=== PATIENT | female | born 1935 | race Caucasian/White ===

== ENCOUNTER 2019-10-17 06:56 | Observation (INO) | payer MEDICARE ==
[2019-10-17 07:40] LABS: #Monocytes 0.3 thou/uL (0.11-0.59); #Neutrophils 9.6 thou/uL (1.40-6.50); %Basophils 0.2 % (0.0-1.0); %Eosinophils 0.2 % (0.0-10.0); %Lymphocytes 9.1 % (21.0-51.0); %Monocytes 2.8 % (0.0-10.0); %Neutrophils 87.8 % (42.0-75.0); Hemoglobin 13.3 g/dL (12.0-16.0); Mean Corpuscular HGB CONC 33.8 g/dL (32.0-36.0); Mean Corpuscular Hemoglobin 30.7 pg (27.0-31.0); Mean Corpuscular Volume 90.8 fL (78.0-98.0); Mean Platelet Volume 8.3 fL (7.4-10.4); Platelet Count 314 thou/uL (130-400); Red Blood Cell (RBC) Count 4.34 mill/uL (4.20-5.40); White Blood Cell (WBC) Count 10.9 thou/uL (4.8-10.8)
[2019-10-17 07:40] LABS: Bacteria/HPF None Seen HPF (None Seen); Bilirubin Negative (Negative); Blood, Urine Trace (Negative); Clarity Clear (Clear); Glucose, Urine (Dipstick) Normal (Negative); Leukocyte 25 Leu/uL (Negative); Nitrite Negative (Negative); Protein, Urine (Dipstick) 10 mg/dL (Neg-Trace); RBC/HPF 21-50 HPF (0-3); Squamous Epithelial 0-3 HPF (0-3); Urobilinogen Normal mg/dL (Less than 2)
[2019-10-17 08:44] LABS: Albumin 4.3 g/dL (3.4-4.8)
[2019-10-17 08:45] LABS: Chloride 105 mmol/L (98-107); Potassium 3.9 mmol/L (3.5-5.1); Sodium 140 mmol/L (136-145)
[2019-10-17 08:46] LABS: Calcium 9.6 mg/dL (7.8-10.44)
[2019-10-17 08:47] LABS: Globulin 2.8 g/dL (2.4-3.5); Glucose 119 mg/dL (83-110); Protein, Total 7.1 g/dL (6.0-8.3)
[2019-10-17 08:48] LABS: Anion Gap 16 mmol/L (10-20); Bilirubin, Total 0.5 mg/dL (0.2-1.2); Carbon Dioxide 23 mmol/L (23-31)
[2019-10-17 08:49] LABS: Alkaline Phosphatase 79 U/L (40-110)
[2019-10-17 08:50] LABS: Calc. Creatinine Clearance 0 mL/min (70-130); Estimated GFR-MDRD 34
[2019-10-17 08:51] LABS: BUN (Urea Nitrogen) 22 mg/dL (9.8-20.1)
[2019-10-17 08:52] LABS: ALT (SGPT) 12 U/L (8-55); AST (SGOT) 24 U/L (5-34)
[2019-10-17 08:53] LABS: Lipase 15 U/L (8-78)
[2019-10-17] MEDS ORDERED: Ondansetron PF 4 MG/2 ML Vial ONE (09:18)
[2019-10-17] MEDS ORDERED: Morphine 4 MG/ML VIAL ONE (09:27)
--- NOTE | 2019-10-17 10:35 | CT ---
ABDOMEN AND PELVIC CT SCAN WITH IV CONTRAST: Date: 10/17/2019 HISTORY: Abdominal pain, primarily right-sided. FINDINGS: Minimal bilateral lower lobe linear parenchymal changes with some pleural thickening having more of a chronic appearance. The liver is unremarkable. Approximately 1.1 cm diameter gallstone within the gallbladder without evidence for distention or abn ormal wall thickening or pericholecystic fluid or other evidence for acute cholecystitis. The pancrea s appears unremarkable. Spleen and adrenal glands are unremarkable. There is moderate dilatation of t he right upper renal collecting system secondary to a large 0.9 x 1.3 cm diameter obstructing calculu s at the ureteropelvic junction. Several smaller nonobstructing right renal calculi. Multiple left renal parapelvic cysts, but no evidence for calculus or acute obstruction. Atherosclerosis of the aorta with some mild lumen diameter narrowing of the distal abdominal aorta. M ultilevel lumbar spine disc osteophytosis and some variable degree of stenosis. Colonic diverticulosi s without acute diverticulitis. Normal appearing appendix. Urinary bladder appears unremarkable. Uter us and adnexal regions are unremarkable as visualized. IMPRESSION: 1. Large obstructing right-sided calculus at the ureteropelvic junction. 2. Normal appearing appendix. 3. Cholelithiasis without evidence for acute cholecystitis. 4. Other findings as above. POS: RRE
--- NOTE | 2019-10-17 10:46 | RAD ---
PORTABLE CHEST 1 VIEW: Date: 10/17/2019 Time: 1012 hours HISTORY: Right lower quadrant pain, nausea and vomiting. FINDINGS/IMPRESSION: The heart size is borderline. The aorta is tortuous. There is evidence of old granulomatous disease. No lobar consolidation, pneumothoraces, jose pulmonary edema, or large effusions are identified. POS: MZA
[2019-10-17] MEDS ORDERED: Iopamidol-370 76% 500 ML 1 ML ONE (11:35)
[2019-10-17] MEDS ORDERED: Acetaminophen 325 MG TAB PO PRN (12:00)
[2019-10-17] MEDS ORDERED: Ondansetron ODT 4 MG TAB SL PRN (12:00)
[2019-10-17] MEDS ORDERED: Ondansetron PF 4 MG/2 ML Vial IVP PRN (12:00)
[2019-10-17] MEDS ORDERED: Morphine 4 MG/ML VIAL SLOW IVP PRN (15:19)
[2019-10-17 15:21] VITALS: BMI 25.7
[2019-10-17] MEDS ORDERED: HYDROcodone/Acetaminophen 5/325 mg Tablet PO PRN ×2 (15:25)
[2019-10-17] MEDS ORDERED: Zolpidem Tartrate 5 MG TAB PO PRN (15:25)
[2019-10-17] MEDS ORDERED: diphenhydrAMINE 50 MG/ML VIAL IVP PRN (15:25)
[2019-10-17] MEDS ORDERED: Mag-Al 1200 mg/1200 mg/30 ML UDCUP PO PRN (15:25)
[2019-10-17] MEDS ORDERED: Acetaminophen 500 MG TAB PO PRN (15:25)
[2019-10-17] MEDS ORDERED: traMADol HCl 50 MG TAB PO PRN (15:29)
--- NOTE | 2019-10-17 15:55 | PDOC.HHP ---
Hospitalist HPI - History of Present Illness abdominal pain History of Present Illness: THis is an 84 year old female patient with past medical history of hypertension , hyperlipidemia, hypothyroidism who presented to the emergency room with abdominal pain. The patient states that her abdominal pain started in her right side radiating to her back at 2:00 am. It was sharp, intermittent and associated with dry heaving. She did not take her medication this morning because she was unsure what was happening. She denies fevers or chills. She denies dysuria but reported some urinary frequency and urge incontinence. She denies diarrhea or recent travel history. She reports intermittent constipation. ED Course: Upon presentation to the ER, the patient had normal vital signs. Labs showed leukocytosis of 10.9 and creatinine of 1.47. CT abdomen showed large obstructing right sided calculus at the UPJ and cholelithiasis. UA showed 7-10 WBC and 21-50 RBC. The patient was given hydrocodone, 1L of IV fluid and morphine and admitted for lithotripsy. SHe did become hypoxic in ER after morphine administration so was admitted for observation. Hospitalist ROS - Review of Systems Constitutional: denies: fever, chills Eyes: denies: vision change Respiratory: denies: cough, dry, shortness of breath Cardiovascular: denies: chest pain, palpitations, orthopnea Gastrointestinal: reports: nausea, abdominal pain, constipation. denies: vomiting Genitourinary: reports: dysuria, frequency Musculoskeletal: reports: neck pain, shoulder pain Skin: reports: rash, lesions Hospitalist History - Past Medical History Cardiac: reports: HTN, Hyperlipidemia Endocrine: reports: Hypothyroidism - Past Surgical History Past Surgical History: reports: Cataract Removal - Family History Other Family History: No family history of kidney stones - Social History Smoking Status: Former smoker Alcohol: reports: None Drugs: reports: none Occupation: retired - Exam General Appearance: NAD, awake alert General - other findings: obese Eye: PERRL, anicteric sclera ENT: normocephalic atraumatic, no oropharyngeal lesions Neck: supple, symmetric, no JVD Heart: RRR, no murmur, no gallops, no rubs Respiratory: CTAB, no wheezes, no rales, no ronchi, no tachypnea Gastrointestinal: soft, non-tender Gastrointestinal - other findings: RLQ tenderness and CVA tenderness Extremities: no cyanosis, no clubbing, no edema Skin: normal turgor, no lesions, no rashes Hospitalist Results - Labs Result Diagrams: 10/17/19 07:22 10/17/19 08:20 Lab results: WBC 10.9 thou/uL (4.8-10.8) H 10/17/19 07:22 Hgb 13.3 g/dL (12.0-16.0) 10/17/19 07:22 Hct 39.4 % (36.0-47.0) 10/17/19 07:22 MCV 90.8 fL (78.0-98.0) 10/17/19 07:22 Plt Count 314 thou/uL (130-400) 10/17/19 07:22 Neutrophils % 87.8 % (42.0-75.0) H 10/17/19 07:22 Sodium 140 mmol/L (136-145) 10/17/19 08:20 Potassium 3.9 mmol/L (3.5-5.1) 10/17/19 08:20 Chloride 105 mmol/L (98-107) 10/17/19 08:20 Carbon Dioxide 23 mmol/L (23-31) 10/17/19 08:20 BUN 22 mg/dL (9.8-20.1) H 10/17/19 08:20 Creatinine 1.47 mg/dL (0.6-1.1) H 10/17/19 08:20 Glucose 119 mg/dL (83-110) H 10/17/19 08:20 Calcium 9.6 mg/dL (7.8-10.44) 10/17/19 08:20 Total Bilirubin 0.5 mg/dL (0.2-1.2) 10/17/19 08:20 AST 24 U/L (5-34) 10/17/19 08:20 ALT 12 U/L (8-55) 10/17/19 08:20 Alkaline Phosphatase 79 U/L (40-110) 10/17/19 08:20 Serum Total Protein 7.1 g/dL (6.0-8.3) 10/17/19 08:20 Albumin 4.3 g/dL (3.4-4.8) 10/17/19 08:20 Lipase 15 U/L (8-78) 10/17/19 08:20 Urine Ketones Trace mg/dL (Negative) A 10/17/19 07:20 Urine Blood Trace (Negative) A 10/17/19 07:20 Urine Nitrite Negative (Negative) 10/17/19 07:20 Ur Leukocyte Esterase 25 Ruel/uL (Negative) 10/17/19 07:20 Urine RBC 21-50 HPF (0-3) A 10/17/19 07:20 Urine WBC 7-10 HPF (0-3) A 10/17/19 07:20 Ur Squamous Epith Cells 0-3 HPF (0-3) 10/17/19 07:20 Urine Bacteria None Seen HPF (None Seen) 10/17/19 07:20 Hospitalist H&P A/P - Plan Plan: Chest X ray: normal CT abdomen: large obstructing right sided calculus at UPJ with moderate dilation of right upper renal collecting system 0.9 x 1.3 cm. Several smaller nonobstructing renal calculi. Cholelithiasis This is an 84 year old female with hyperlipidemia, hypothyroidism who presented with abdominal pain secondary to kidney stone #Obstructive uropathy secondary to kidney stone #Acute Kidney Injury - start IV fluids 100/hour, creatinine currently up to 1.47 - UA showed only 7-10 WBC but due to frequency and urgency send urine culture. She has been started on IV ceftriaxone - morphine prn for pain - urology consulted, plan for possible lithotripsy tomorrow Cholelithiasis - no RUQ tenderness on exam, outpatient follow up Left renal cysts - outpatient follow up Hypothyroidism - continue levothyroxine Hyperlipidemia - continue fenofibrate Hypertension - continue amlodipine DVT prophylaxis: SCDS Code status: full code for procedure than afterwards DNR/DNi
[2019-10-17] MEDS: Sodium Chloride 0.9% 1,000 ML IV SCH (15:59)
[2019-10-17] MEDS ORDERED: cefTRIAXone\\ROCEPHIN 1 GM in Sodium Chloride 0.9% 100 ML IVPB SCH (16:00)
[2019-10-17 16:06] LABS: PTT 25.4 SEC (22.9-36.1); Prothrombin Time 12.7 SEC (12.0-14.7)
--- NOTE | 2019-10-17 16:53 | CON ---
DATE OF CONSULTATION: 10/17/2019 REASON FOR CONSULT: Right upper quadrant abdominal discomfort, associated nausea, hypoxia after pain medications. HISTORY OF PRESENT ILLNESS: Ms. Red is a pleasant 84-year-old female who presented to the emergency room due to worsening of her right lower quadrant abdominal discomfort. As she was concerned regarding possible gallstones or appendicitis, she presented to [facility] Emergency Room. Her primary care physician is Dr. Lewis. The patient does have history of hypertension, hypercholesteremia with minimal comorbidities. She states that this is the first time she has ever presented to an ER or hospital setting. She has had associated nausea with right lower quadrant abdominal discomfort, she rates this 6 to 7/10 on the pain scale with progressive worsening. The pain is intermittent, resolves on its own. She denies fever, gross hematuria, prior history of kidney stones. She lives in a private residence with her son. She is a . She was provided pain medication by the emergency room, morphine. Although this resolved her discomfort, this resulted in hypoxia, resulting in her requiring 2 L of O2. Currently, she is saturating well, and states that she has no significant discomfort after the morphine. PAST MEDICAL HISTORY: Hypertension, hypercholesteremia, chronic shoulder pain, hypothyroidism. FAMILY HISTORY: Unknown as they are . SOCIAL HISTORY: Remote history of tobacco abuse, quit years ago. Minimal tobacco year, about 5 or 10 years per the patient. HOME MEDICATIONS: Include: 1. Levothyroxine. 2. Fenofibrate. 3. Amlodipine. 4. Benazepril. ALLERGIES: NO KNOWN DRUG ALLERGIES. PHYSICAL EXAMINATION: VITAL SIGNS: Stable. She is 98, 180/91, 22, 98. She is 97% on 2 L. GENERAL: The patient appears to be in no acute distress, conversational, provides her own subjective history. She is alert and oriented x3. HEENT: Grossly unremarkable. HEART: Regular rate. LUNGS: Clear. ABDOMEN: Soft, nontender, nondistended. There is no flank tenderness or CVA tenderness of concern at this time. No suprapubic tenderness. : Demonstrates atrophic vaginitis. EXTREMITIES: No cyanosis, clubbing, or edema. NEUROLOGICAL: No gross focal deficits per se. SKIN: No obvious rashes. Normal turgor. MUSCULOSKELETAL: No gross asymmetry or abnormality grossly appreciated. LABORATORY DATA: Pertinent labs and imaging which I reviewed myself. White count of 10, hemoglobin 13, platelet 214, 87 segs. Chemistry profile: Sodium 140, potassium 3.9, BUN 22, creatinine 1.4. There is no prior BMP for comparison. LFTs are grossly unremarkable. UA demonstrates yellow, clear, trace ketones, trace blood, negative nitrites, 25 leukocytes, 20 to 50 rbc's, 7 to 10 wbc's, 0 to 3 epithelials, bacteria none. Culture has been sent by the emergency room. DIAGNOSTIC STUDIES: Pertinent imagin. Abdomen and pelvis CT with contrast, which I reviewed myself: Large right proximal ureteral calculi, measuring 1.3 cm x 9 mm x 8 mm. Per my review, the stone is at the level of L3, Hounsfield unit greater than 1000. There is also right lower pole 4-mm nonobstructing renal calculus. Left kidney demonstrates multiple parapelvic cysts without evidence of left hydronephrosis. Cholelithiasis without evidence of acute cholecystitis. Normal appendix. Atherosclerosis of the aorta with some mild lumen diameter narrowing of the distal abdominal aorta. 2. Chest x-ray is grossly unremarkable. 3. EKG is normal sinus rhythm with prolonged QT. IMPRESSION AND PLAN: 1. Ms. Red is a pleasant 84-year-old female with history of right lower quadrant flank pain due to large right proximal ureteral calculus, dimensions and location as above. 2. Incidental gallstones without evidence of cholecystitis. 3. Hypoxic episode after morphine for pain control. The patient is currently admitted under medical service. She appears to be resting comfortably with stable vital signs. I will start empiric Rocephin. I informed the patient that due to large stone burden, treatment is likely required as she presents with a large 1.3-cm proximal ureteral calculus. Given stone size, it is unlikely that she would pass this spontaneously. She would like this treated. Await UCX She has consented for cysto, right retrograde stent, possible ureteroscopy, laser lithotripsy pending ucx. She may need staged intervention given large stone burden, location, density, discussed with her in detail. Risks and complications including, but not limited to, bleeding, pain, infection, injury to adjacent organs, ureteral or renal or bladder injury, sepsis have been reviewed with her in detail. She may have heart healthy diet today, n.p.o. after midnight as we planned to proceed with cysto stent tomorrow morning. Job ID: [id number] MTDD
[2019-10-17] MEDS ORDERED: hydrALAZINE 20 MG/ML VIAL SLOW IVP PRN (20:04)
[2019-10-17] MEDS: Docusate 100 MG CAP PO SCH (20:36)
[2019-10-17] MEDS ORDERED: Famotidine/PF 20 mg/2ml Vial SLOW IVP SCH (21:00)
[2019-10-18] MEDS ORDERED: Ondansetron PF 4 MG/2 ML Vial IVP PRN (02:08)
[2019-10-18] MEDS ORDERED: Ondansetron ODT 4 MG TAB PO PRN (02:08)
[2019-10-18] MEDS: Sodium Chloride 0.9% 1,000 ML IV SCH ×2 (02:32→13:19)
[2019-10-18] MEDS ORDERED: Levothyroxine Sodium 50 MCG TAB PO SCH (06:00)
[2019-10-18 06:12] LABS: #Eosinphils 0.1 thou/uL (0.0-0.7); #Lymphocytes 1.6 thou/uL (1.20-3.40); #Monocytes 0.6 thou/uL (0.11-0.59); #Neutrophils 6.4 thou/uL (1.40-6.50); %Basophils 0.5 % (0.0-1.0); %Eosinophils 1.1 % (0.0-10.0); %Lymphocytes 18.6 % (21.0-51.0); %Monocytes 7.1 % (0.0-10.0); %Neutrophils 72.6 % (42.0-75.0); Hemoglobin 10.7 g/dL (12.0-16.0); Mean Corpuscular HGB CONC 33.4 g/dL (32.0-36.0); Mean Corpuscular Hemoglobin 30.7 pg (27.0-31.0); Mean Platelet Volume 8.2 fL (7.4-10.4); Platelet Count 250 thou/uL (130-400); RBC Distribution Width 11.8 % (11.5-14.5); Red Blood Cell (RBC) Count 3.48 mill/uL (4.20-5.40); White Blood Cell (WBC) Count 8.8 thou/uL (4.8-10.8)
[2019-10-18 06:19] LABS: Hemoglobin A1c 5.4 % (4.0-6.0)
[2019-10-18 06:29] LABS: Anion Gap 11 mmol/L (10-20); BUN (Urea Nitrogen) 17 mg/dL (9.8-20.1); Calc. Creatinine Clearance 40 mL/min (70-130); Calcium 8.5 mg/dL (7.8-10.44); Carbon Dioxide 25 mmol/L (23-31); Chloride 109 mmol/L (98-107); Estimated GFR-MDRD 46; Glucose 105 mg/dL (83-110); Potassium 4.1 mmol/L (3.5-5.1); Sodium 141 mmol/L (136-145)
--- NOTE | 2019-10-18 07:51 | PRG ---
DATE OF SERVICE: 10/18/2019 SUBJECTIVE: Patient is feeling better today. OBJECTIVE: VITAL SIGNS: Stable. She is afebrile, 92%. ABDOMEN: Soft, nontender, nondistended. No CVA tenderness. PERTINENT LABORATORY DATA: White count decreased from 10 to 8, hemoglobin 12, and platelet 250. Creatinine on admission 1.4, this morning it is 1.1. Urine culture is pending. IMPRESSION AND PLAN: Ms. Red is an 84-year-old female with large right UPJ proximal ureteral calculi. She is n.p.o. for cysto, stent today. As urine culture is pending, I informed her that we will schedule ureteroscopy, laser lithotripsy in a week or two when culture has finalized. She verbalizes understanding. Anticipate she will be discharged after her ureteral stent. Job ID: [id number]
[2019-10-18] MEDS ORDERED: Famotidine/PF 20 mg/2ml Vial SLOW IVP SCH (09:00)
[2019-10-18] MEDS ORDERED: Amlodipine 10 MG TAB PO SCH (09:00)
[2019-10-18] MEDS ORDERED: Iothalamate Meglumine 60% 30 ML VIAL FS ONE (10:13)
[2019-10-18] MEDS ORDERED: Fentanyl 100 MCG/2 ML VIAL ONE (10:18)
[2019-10-18] MEDS ORDERED: Famotidine/PF 20 mg/2ml Vial ONE (10:18)
[2019-10-18] MEDS ORDERED: PROPOFOL 60 ML ONE (10:18)
[2019-10-18] MEDS: Docusate 100 MG CAP PO SCH (10:22)
[2019-10-18] MEDS ORDERED: cefTRIAXone\\ROCEPHIN 1 GM VIAL ONE (10:44)
[2019-10-18] MEDS ORDERED: Sodium Chloride 0.9% 100 ML ONE (10:45)
[2019-10-18] MEDS ORDERED: Phenazopyridine HCl 97.5 MG TABLET PO PRN (11:04)
[2019-10-18] MEDS ORDERED: Ondansetron HCl/PF 4 MG/2 ML Vial IVP PRN (11:07)
--- NOTE | 2019-10-18 11:14 | RAD ---
EXAM: XR IVP Retrograde PROVIDED CLINICAL HISTORY: Right ureteral stent placement. COMPARISON: CT abdomen on 10/17/2019 FINDINGS/IMPRESSION: Varitypist image demonstrates a calcification overlying the expected location of the right renal pelvis sh own to represent a calculus in the renal pelvis on prior CT exam. No definite additional suspicious calcifications are seen on this exam. Degenerative changes are seen in the spine with mild left conve x curvature of thoracolumbar spine. Retrograde urogram demonstrates mild right hydronephrosis with final image demonstrating a right ureteral stent in place. Correlation with intraoperative findings i s recommended.
--- NOTE | 2019-10-18 11:39 | OP ---
DATE OF PROCEDURE: 10/18/2019 PREOPERATIVE DIAGNOSIS: An 84-year-old female presented with right flank pain due to a large right proximal ureteropelvic junction stone measuring 1.3 cm. POSTOPERATIVE DIAGNOSIS: An 84-year-old female presented with right flank pain due to a large right proximal ureteropelvic junction stone measuring 1.3 cm. PROCEDURES PERFORMED: Cystoscopy, right retrograde pyelogram, 6 x 22 double-J ureteral stent placement with distal tail. ANESTHESIA: TIVA. COMPLICATIONS: None apparent. DISPOSITION: To recovery room in stable condition. INDICATIONS OF THE PROCEDURE AND HISTORY: Ms. Red is an 84-year-old female with minimal comorbidities, presented to the emergency room due to significant right flank pain. She was found to have a large right UPJ stone measuring 1.3 cm. Given large stone burden, she presents for stent. It is unlikely that she would pass a right 1.3 cm stone, moreover, pain medication provided in the emergency room has resulted in desaturation. Therefore, she is admitted to the medical service and has been doing well. As her preliminary urine culture demonstrates low count gram-negative luna, she is advised regarding ureteral stent, ureteroscopy, laser lithotripsy after culture finalized and infection resolved. Risks and complications of the procedure were reviewed with her in detail including, but not limited to: Bleeding, pain, infection, injury to adjacent organs, urosepsis, ureteral, renal , kidney injury. All questions answered to her satisfaction and she desired to proceed. DESCRIPTION OF PROCEDURE: After an informed consent was signed, the patient was taken to the operating room, placed in a dorsal lithotomy position with the genital area prepped and draped in the usual surgical sterile fashion. She was provided broad-spectrum antibiotics preoperatively, bilateral MANJULA hose SCDs were placed. A 22-Armenian cystoscope was utilized for cystoscopy, which demonstrated mildly deviated trigone secondary to a cystocele. The UOs were in normal orthotopic position. No bladder calculi or bladder tumors were seen. An open-ended catheter was utilized to intubate the right UO and there was some resistance at the level of the UPJ stone. Therefore, a gentle retrograde pyelogram was performed demonstrating a large UPJ stone, with hydronephrosis. A 0.035 Sensor wire was able to be placed into the right upper pole with ease and a 6 x 22 double-J ureteral stent was placed. Distal tail was left in situ and she tolerated the procedure well. She will be admitted back to the floor, she will most likely be discharged this afternoon with broad-spectrum antibiotic therapy such as ciprofloxacin x 5 days. vesicare, azo prn , trmadol prn has close followup with me tomorrow to preop for ureteroscopy, laser lithotripsy. Job ID: [id number] MTDD
[2019-10-18] MEDS ORDERED: Lidocaine 1% PF 5 ML VIAL ONE (12:29)
[2019-10-18] MEDS ORDERED: EPHEDRINE 25 MG/5 ML SYRINGE ONE (12:29)
[2019-10-18] MEDS ORDERED: Ondansetron PF 4 MG/2 ML Vial ONE (12:29)
--- NOTE | 2019-10-18 13:22 | DIS ---
DATE OF ADMISSION: 10/17/2019 DATE OF DISCHARGE: 10/18/2019 DISCHARGE DIAGNOSES: 1. Obstructive uropathy secondary to renal calculus 2,. Acute kidney injury 3. Cholelithiasis 4. Left renal cyst. SECONDARY DISCHARGE DIAGNOSES: Hypothyroidism, hyperlipidemia, hypertension, and anemia. CONSULTATIONS: Dr. Ramakrishna Koroma with Urology. PROCEDURES: Cystoscopy, right retrograde pyelogram, insertion of 6 x 22 double- J ureteral stent placement with distal tail on 10/17. BRIEF HISTORY OF PRESENT ILLNESS: This is an 84-year-old female with past medical history of hypertension and hyperlipidemia, presented to the emergency room with right-sided abdominal pain radiating to her back, associated with dry heaving and nausea. The patient had a leukocytosis of 10.9 and a creatinine of 1.47. CT abdomen showed a large obstructing right-sided calculus of the UVJ and cholelithiasis. Her urine showed 7 to 10 white blood cells and 21 to 50 rbc's. The patient did become slightly hypoxic after receiving morphine, so is admitted for observation. HOSPITAL COURSE: Obstructive uropathy secondary to kidney stone, status post ureteral stent placement: The patient was started on IV fluids at 100 an hour. She was started on IV ceftriaxone empirically. Her urine cultures currently pending on the day of discharge. She underwent a cystoscopy with right retrograde pyelogram and insertion of a 6 x 22 double-J ureteral stent placement on 10/17. She tolerated the procedure well and currently does not have any abdominal pain, nausea, or vomiting. Her creatinine improved to 1.13 on the day of discharge. She was discharged with ciprofloxacin for additional 5 days by Urology. We will follow up her urine culture and call her if there are any signs of resistance. Next, she will follow up with Dr. Ramakrishna Koroma tomorrow for preop evaluation of laser lithotripsy and ureteroscopy at a further date. Cholelithiasis: The patient was noted to have incidental gallstones on her CT abdomen. She has no right upper quadrant tenderness on exam. This can be followed up as an outpatient. Left renal cyst: This was noted on her CT abdomen. She followed up as an outpatient. DISCHARGE PHYSICAL EXAMINATION: VITAL SIGNS: Temperature 97.8, heart rate 70, respiratory rate 14, O2 saturation 95% on room air, and blood pressure 136/71. GENERAL: The patient is alert, awake, and oriented x3. CV: Regular rate and rhythm with no murmurs, rubs, or gallops. LUNGS: Clear to auscultation bilaterally. ABDOMEN: Positive bowel sounds, soft, nontender, and nondistended. EXTREMITIES: No edema. PERTINENT LABORATORY DATA: CBC on 10/17: White blood cell count 8.8, hemoglobin 10.7, hematocrit 32.1, and platelet count 250. BMP on 10/17: Was remarkable only for creatinine of 1.13. Hemoglobin A1c: 5.4. LFTs on 10/16: Normal. Lipase: 15. UA on 10/16: Trace ketones, trace blood, 21 to 50 rbc, 7 to 10 white blood cells, 25 leukocyte esterase, and negative nitrite. Urine culture on 10/16: Young culture. PERTINENT IMAGING: Chest x-ray: Shows no acute disease. CT abdomen: Shows 1.1 cm diameter gallstone within the gallbladder without evidence of distention. There is moderate dilation of the right upper renal collecting system secondary to a large 0.9 x 1.3 cm diameter obstructing calculus at the ureteropelvic junction, several smaller nonobstructing right renal calculi, multiple left renal parapelvic cysts. Atherosclerosis of the aorta with narrowing of the distal abdominal aorta. Multilevel lumbar spine disk osteophytosis. Colonic diverticulosis. DISCHARGE CONDITION: Stable. ACTIVITY: As tolerated. DIET: Heart healthy diet. DISCHARGE MEDICATIONS: New prescriptions: 1. Cipro 500 mg p.o. b.i.d. 2. Docusate 100 mg p.o. b.i.d. 3. Phenazopyridine 195 mg p.o. q.8 hours p.r.n. 4. Solifenacin 5 mg p.o. daily. 5. Tramadol 50 mg p.o. q.i.d. p.r.n., prescribed by Dr. Ramakrishna Koroma. Resume all other home medications DISCHARGE INSTRUCTIONS: The patient to follow up with her PCP in a week and have repeat CBC and BMP to evaluate anemia and elevated creatinine. She should follow up with Dr. Ramakrishna Koroma tomorrow for preop evaluation of ureteroscopy and laser lithotripsy. Job ID: [id number] [facility]
[2019-10-18 14:15] VITALS: BP 163/73; TEMP 97.6
[2019-10-18] MEDS ORDERED: Trospium 20 MG TAB PO SCH (21:00)
--- NOTE | 2019-10-21 09:48 | EKG ---
Test Reason : Blood Pressure : / mmHG Vent. Rate : 086 BPM Atrial Rate : 086 BPM P-R Int : 140 ms QRS Dur : 094 ms QT Int : 402 ms P-R-T Axes : 011 -07 057 degrees QTc Int : 481 ms Sinus rhythm with occasional Premature ventricular complexes Prolonged QT Abnormal ECG Confirmed by JAMES PALAFOX DO ([id number]), dictionary editor ELVIA HODGSON ([id number]) on 10/21/2019 9:48:31 AM Referred By: Confirmed By:JAMES PALAFOX DO
== END 2019-10-18 14:18 | disposition home or self-care (01) ==
LOC: ERS 06:56 → SURG B 12:27
PROVIDERS: ADMIT Internal Medicine; ATTEND Internal Medicine
PROC: 0T768DZ Dilation of Right Ureter with Intraluminal Device, Via Natural or Artificial Opening Endoscopic (ICD-10-PCS; principal; 2019-10-17)
DX: N13.2 Hydronephrosis with renal and ureteral calculous obstruction (principal); N17.9 Acute kidney failure, unspecified; K80.20 Calculus of gallbladder without cholecystitis without obstruction; N28.1 Cyst of kidney, acquired; I10 Essential (primary) hypertension; E03.9 Hypothyroidism, unspecified; E78.00 Pure hypercholesterolemia, unspecified; Z79.899 Other long term (current) drug therapy; Z87.891 Personal history of nicotine dependence
CPT/HCPCS: 52332; 71045; 74177; 74420; 80048; 80053; 83036; 83690; 85025 ×2; 85610; 85730; 87077; 87086; 87186; 93005; 96361 ×3; 96365; 96375 ×2; 96376; 99285; C1758; C1769; G0378 ×3; J0696 ×2; J2001; J2270; J2405 ×2; J2704; J3010; J3490 ×2; Q9967; 36415; 81003; 81015; 96374; S0028

== ENCOUNTER 2019-10-25 05:51 | Day surgery (SDC) | payer MEDICARE, OTHER ==
[2019-10-24 10:32] VITALS: BMI 28.0
[2019-10-25 06:31] LABS: #Basophils 0.1 thou/uL (0.0-0.2); #Eosinphils 0.4 thou/uL (0.0-0.7); #Lymphocytes 2.2 thou/uL (1.20-3.40); #Monocytes 0.5 thou/uL (0.11-0.59); #Neutrophils 2.5 thou/uL (1.40-6.50); %Basophils 2.1 % (0.0-1.0); %Eosinophils 6.2 % (0.0-10.0); %Lymphocytes 39.3 % (21.0-51.0); %Monocytes 8.8 % (0.0-10.0); %Neutrophils 43.6 % (42.0-75.0); Hemoglobin 12.6 g/dL (12.0-16.0); Mean Corpuscular HGB CONC 32.8 g/dL (32.0-36.0); Mean Corpuscular Hemoglobin 30.1 pg (27.0-31.0); Mean Corpuscular Volume 91.6 fL (78.0-98.0); Mean Platelet Volume 7.5 fL (7.4-10.4); Platelet Count 389 thou/uL (130-400); White Blood Cell (WBC) Count 5.7 thou/uL (4.8-10.8)
[2019-10-25] MEDS ORDERED: Iothalamate Meglumine 60% 50 ML VIAL FS ONE (06:31)
[2019-10-25 06:37] LABS: Prothrombin Time 13.1 SEC (12.0-14.7)
[2019-10-25 06:38] LABS: PTT 29.7 SEC (22.9-36.1)
[2019-10-25 06:50] LABS: Anion Gap 12 mmol/L (10-20); BUN (Urea Nitrogen) 15 mg/dL (9.8-20.1); Calc. Creatinine Clearance 49 mL/min (70-130); Calcium 9.8 mg/dL (7.8-10.44); Carbon Dioxide 29 mmol/L (23-31); Chloride 107 mmol/L (98-107); Estimated GFR-MDRD 55; Glucose 92 mg/dL (83-110); Potassium 3.6 mmol/L (3.5-5.1); Sodium 144 mmol/L (136-145)
[2019-10-25] MEDS ORDERED: Levofloxacin 500 mg/D5W 100 ml Premix Bag ONE (06:55)
[2019-10-25] MEDS ORDERED: Fentanyl 100 MCG/2 ML VIAL ONE (07:13)
--- NOTE | 2019-10-25 08:50 | RAD ---
KUB: DATE: 10/25/2019. PROVIDED CLINICAL HISTORY: Preop. FINDINGS: Comparison 10/18/2019. Right-sided ureteral stent is noted. Calculi are again noted overlying the ex pected location of the right renal pelvis. The abdominal bowel gas pattern is nonspecific. IMPRESSION: Right nephrolithiasis. POS: ASIM
--- NOTE | 2019-10-25 09:31 | RAD ---
RETROGRADE PYELOGRAM: Date: 10/25/2019 HISTORY: Stent, renal calculi. COMPARISON: 10/18/2019. FINDINGS: A single spot film is submitted for interpretation. A right ureteral stent is noted in place. There i s again noted to be a fairly large somewhat irregular shaped calculus in the right middle upper colle cting system near the ureteropelvic junction. IMPRESSION: Overall stable appearing calculus. Right ureteral stent in place. POS: JAYME
[2019-10-25] MEDS ORDERED: Phenazopyridine HCl 97.5 MG TABLET ONE (09:34)
[2019-10-25] MEDS ORDERED: Ondansetron PF 4 MG/2 ML Vial ONE (10:15)
[2019-10-25] MEDS ORDERED: Succinylcholine Chloride 20 MG/ML 10 ml SYRINGE FS ONE (10:15)
[2019-10-25] MEDS ORDERED: Lidocaine 1% PF 5 ML VIAL ONE (10:15)
[2019-10-25] MEDS ORDERED: Dexamethasone 20 MG/5 ML VIAL ONE (10:15)
[2019-10-25] MEDS ORDERED: Rocuronium Bromide 10 MG/ML (10ML VIAL) ONE (10:15)
[2019-10-25] MEDS ORDERED: Glycopyrrolate 0.2 MG/ML 5 ML SYRINGE ONE (10:15)
[2019-10-25] MEDS ORDERED: PROPOFOL 200 MG/20 ML VIAL ONE (10:15)
[2019-10-25] MEDS ORDERED: Promethazine HCl 25 MG/ML VIAL ONE (10:20)
--- NOTE | 2019-10-25 12:02 | OP ---
DATE OF PROCEDURE: 10/24/2019 PREOPERATIVE DIAGNOSES: 1. An 84-year-old female presented with right 1.3 cm ureteropelvic junction stone, Hounsfield unit greater than 1000. 2. Right lower pole 4 mm renal calculi. POSTOPERATIVE DIAGNOSES: 1. An 84-year-old female presented with right 1.3 cm ureteropelvic junction stone, Hounsfield unit greater than 1000. 2. Right lower pole 4 mm renal calculi. PROCEDURES PERFORMED: Cystoscopy, right retrograde pyelogram, 6 x 24 double-J ureteral stent exchange, flexible ureteroscopy, pyeloscopy, laser lithotripsy of large right renal calculi, basket extraction ANESTHESIA: General. COMPLICATIONS: None apparent. DISPOSITION: To recovery room in stable condition. INDICATION FOR PROCEDURE AND HISTORY: Ms. Red is a pleasant 84-year-old female who presented to the emergency room due to right flank pain demonstrating large right UPJ stone. She underwent ureteral stent placement. Her initial urine culture demonstrated very low count gram negative luna. She was provided antibiotic therapy and a repeat culture is negative and she presents today for cysto, ureteroscopy, laser lithotripsy. Risks and complications of the procedure were reviewed with her in detail including, but not limited to, bleeding, pain, infection, injury to adjacent organs, ureteral, renal, kidney injury, sepsis, questions answered to her satisfaction and she desires to proceed with ureteroscopy, laser lithotripsy. Alternatives of the procedure including ESWL were discussed with her in detail. DESCRIPTION OF PROCEDURE: After an informed consent was signed, the patient was taken to the operating room, placed in a dorsal lithotomy position with the genital area prepped and draped in the usual surgical sterile fashion. Bilateral MANJULA hose SCDs and broad-spectrum antibiotics were provided. A 21-Burmese cystoscope was utilized for cystoscopy, which demonstrated normal bladder mucosa with a right ureteral stent in good position. This was removed to the level of the meatus. A 0.035 Sensor wire was placed into the right upper pole and the stent completely removed. At this time, we placed a 0.035 Sensor wire into the right upper pole and the stent was completely removed. A 10-Burmese dual-lumen access sheath was then passed over the safety wire and a retrograde pyelogram was performed. A large radio opaque stone was seen on preop KUB fluoroscopy. We placed a second safety wire 0.035 Super Stiff into the right upper pole. Dual-lumen catheter was then removed and an 11/13-Burmese x 28 cm navigator was passed without difficulty to the level of the proximal ureter. A flexible ureteroscope was then advanced over the working Super Stiff wire. The wire was then removed, then we surveyed the collecting system and there was a large right renal pelvic stone consistent with CT. It appeared that a right lower pole stone was adherent to the right renal pelvic stone now. Using 273 micron laser fiber ball-tip at 1.0 joules dust setting, we laser lithotripsied the stone into multiple tiny fragments. Using a Zero Tip Nitinol basket, we basket extracted those stone debris that were of significant size. We did spend significant amount of time lasering, basketing even large, dense stone. The stone was sent for chemical analysis. Surveying of the collecting system demonstrated that what remained in the right collecting system, appeared to be dustlike caliber and should not be of clinical significance that she will most likely pass these on her own. Survey of the ureter demonstrated no evidence of ureteral stone, or ureteral mucosa injury. I can see at the level of the UPJ where the stone was obstructing as there was some bullous edema of the UPJ. A 6 x 24 double-J ureteral stent was then passed over the safety wire and the wire was completely removed and good coil was seen in both kidney and bladder. Bladder was completely emptied and she tolerated the procedure well and transported to the recovery room in stable condition. She is discharged with Omnicef 300 mg one p.o. b.i.d. x10 days, VESIcare 5 mg #20, Azo p.r.n. Prescription for KUB x-ray provided to be obtained on October 31 at 9 a.m., tramadol 50 mg #30, Azo [id number] for p.r.n. dysuria. If the KUB demonstrates no significant clinical stone burden of concern, she will undergo cysto, stent pull, November 01 at 0845 hours. Job ID: [id number] [facility]
--- NOTE | 2019-10-25 14:03 | EKG ---
Test Reason : PREOP Blood Pressure : / mmHG Vent. Rate : 068 BPM Atrial Rate : 068 BPM P-R Int : 112 ms QRS Dur : 094 ms QT Int : 412 ms P-R-T Axes : -21 -03 027 degrees QTc Int : 438 ms Normal sinus rhythm Nonspecific T wave abnormality Abnormal ECG When compared with ECG of 17-OCT-2019 10:22, Premature ventricular complexes are no longer Present Confirmed by DR. Piero MIGUEL ([id number]) on 10/25/2019 2:03:23 PM Referred By: JARRED Confirmed By:DR. Piero MIGUEL
== END 2019-10-25 12:39 | disposition home or self-care (01) ==
LOC: SDC 05:51
PROVIDERS: ATTEND Urology
PROC: 0TC38ZZ Extirpation of Matter from Right Kidney Pelvis, Via Natural or Artificial Opening Endoscopic (ICD-10-PCS; principal; 2019-10-25)
PROC: 0T768DZ Dilation of Right Ureter with Intraluminal Device, Via Natural or Artificial Opening Endoscopic (ICD-10-PCS; 2019-10-25)
DX: N20.2 Calculus of kidney with calculus of ureter (principal); N28.1 Cyst of kidney, acquired; R35.0 Frequency of micturition; I10 Essential (primary) hypertension; E78.5 Hyperlipidemia, unspecified; Z79.899 Other long term (current) drug therapy
CPT/HCPCS: 52356; 74018; 74420; 80048; 82365; 85025; 85610; 85730; 88300; 93005; C1758; C1769; J1100; J1956; J2001; J2405; J2550; J2704; J3010; 36415; 93010

== ENCOUNTER 2019-11-01 08:58 | Outpatient (CLI) | payer MEDICARE ==
--- NOTE | 2019-11-01 09:36 | RAD ---
Radiograph abdomen one view: 11/01/2019 HISTORY: 84-year-old female with calculus of kidney. COMPARISON: 10/25/2019 FINDINGS: Right ureteral stent remains, but the upper pigtail loop appears to be in a lower calyx now than on t he prior. The previously demonstrated calcification cluster, perhaps post lithotripsy Steinstrasse, overlapping the proximal aspect of the stent, is no longer visualized. Bowel gas pattern is normal. IMPRESSION: 1. Interval change in position of the upper portion of the right ureteral stent, probably in a differ ent calyx. 2. Post lithotripsy pulverized calculus fragment cluster in proximal right ureter is no longer presen t.
== END 2019-11-01 08:59 | disposition home or self-care (01) ==
LOC: BICRAD 08:58
PROVIDERS: ATTEND Urology
DX: N20.0 Calculus of kidney (principal); Z96.0 Presence of urogenital implants
CPT/HCPCS: 74018

== ENCOUNTER 2019-11-14 06:38 | Outpatient (CLI) | payer MEDICARE, OTHER ==
[2019-11-14 14:06] LABS: #Basophils 0.1 thou/uL (0.0-0.2); #Eosinphils 0.2 thou/uL (0.0-0.7); #Monocytes 0.5 thou/uL (0.11-0.59); #Neutrophils 2.7 thou/uL (1.40-6.50); %Basophils 1.6 % (0.0-1.0); %Eosinophils 3.3 % (0.0-10.0); %Lymphocytes 45.4 % (21.0-51.0); %Monocytes 8.1 % (0.0-10.0); %Neutrophils 41.6 % (42.0-75.0); Hemoglobin 12.2 g/dL (12.0-16.0); Mean Corpuscular HGB CONC 33.6 g/dL (32.0-36.0); Mean Corpuscular Volume 92.1 fL (78.0-98.0); Mean Platelet Volume 8.4 fL (7.4-10.4); Platelet Count 308 thou/uL (130-400); RBC Distribution Width 12.2 % (11.5-14.5); Red Blood Cell (RBC) Count 3.95 mill/uL (4.20-5.40); White Blood Cell (WBC) Count 6.6 thou/uL (4.8-10.8)
[2019-11-14 14:11] LABS: ALT (SGPT) 13 U/L (8-55); AST (SGOT) 18 U/L (5-34); Albumin 4.5 g/dL (3.4-4.8); Alkaline Phosphatase 71 U/L (40-110); Bilirubin, Direct 0.2 mg/dL (0.1-0.3); Bilirubin, Total 0.4 mg/dL (0.2-1.2)
--- NOTE | 2019-11-14 20:27 | EKG ---
Test Reason : Blood Pressure : / mmHG Vent. Rate : 073 BPM Atrial Rate : 073 BPM P-R Int : 136 ms QRS Dur : 092 ms QT Int : 410 ms P-R-T Axes : 026 -08 017 degrees QTc Int : 451 ms Normal sinus rhythm Minimal voltage criteria for LVH, may be normal variant Borderline ECG When compared with ECG of 25-OCT-2019 06:55, Non-specific change in ST segment in Inferior leads Confirmed by KARINA MONTGOMERY, SGriffin ([id number]) on 11/14/2019 8:26:56 PM Referred By: MADISON Confirmed By:DR. Caterina COLLINS MD
[2019-11-15 10:55] LABS: SARS-CoV-2 MS2 Positive; SARS-CoV-2 N Gene Negative; SARS-CoV-2 S Gene Negative; SARS-CoV-2 orf1ab Negative
== END 2019-11-14 06:39 | disposition home or self-care (01) ==
LOC: LABBT 06:38
PROVIDERS: ATTEND Surgery
DX: Z01.818 Encounter for other preprocedural examination (principal); Z11.59 Encounter for screening for other viral diseases; K80.20 Calculus of gallbladder without cholecystitis without obstruction
CPT/HCPCS: 80076; 85025; 93005; U0003; 87635; 93010

== ENCOUNTER 2019-11-17 06:47 | Day surgery (SDC) | payer MEDICARE ==
[2019-11-17] MEDS ORDERED: Lidocaine 1% w/Epinephrine 1:100K 20 ML VIAL ONE (08:14)
[2019-11-17] MEDS ORDERED: Bupivacaine 0.25% HCL 30 ML VIAL ONE (08:14)
[2019-11-17] MEDS ORDERED: Fentanyl 100 MCG/2 ML VIAL ONE (08:17)
[2019-11-17] MEDS ORDERED: Promethazine HCl 25 MG/ML VIAL ONE (10:07)
[2019-11-17] MEDS ORDERED: Lidocaine 1% PF 5 ML VIAL ONE (12:36)
[2019-11-17] MEDS ORDERED: Rocuronium Bromide 10 MG/ML (10ML VIAL) ONE (12:36)
[2019-11-17] MEDS ORDERED: Ketorolac Tromethamine 30 MG/ML VIAL ONE (12:36)
[2019-11-17] MEDS ORDERED: Ondansetron PF 4 MG/2 ML Vial ONE (12:36)
[2019-11-17] MEDS ORDERED: Dexamethasone 20 MG/5 ML VIAL ONE (12:36)
[2019-11-17] MEDS ORDERED: PROPOFOL 200 MG/20 ML VIAL ONE (12:36)
[2019-11-17] MEDS ORDERED: Glycopyrrolate 0.2 MG/ML 5 ML SYRINGE ONE (12:36)
--- NOTE | 2019-11-18 06:06 | OP ---
DATE OF PROCEDURE: 11/17/2019 PREOPERATIVE DIAGNOSIS: Symptomatic cholelithiasis. PROCEDURE PERFORMED: Laparoscopic cholecystectomy. INDICATIONS: The patient is an 84-year-old female who has been having episodic right upper quadrant pain, worse after eating. CT showed cholelithiasis. FINDINGS: Quite a bit of adhesions to the gallbladder suggestive of previous inflammation. The cystic duct was of small caliber. DESCRIPTION OF PROCEDURE: After informed consent was obtained, the patient was taken to the operating room and given general endotracheal anesthesia, placed in supine position. Abdomen was prepped and draped in usual fashion. Local anesthesia was infiltrated subcutaneously and deep. A subumbilical incision was performed. Subcu divided sharply. The fascia was grasped and 2 stay sutures of 0 Vicryl placed on either side of midline. Midline incised, digital palpation revealed no local adhesions. A blunt 12 mm trocar inserted. Pneumoperitoneum was created to a pressure of 15 mmHg. 0 degree laparoscope inserted under direct vision. Three 5-mm ports were placed subcostally. Gallbladder grasped, advanced superiorly. The peritoneum lysed distally to expose the cystic duct and cystic artery in critical view. Artery and duct were triply ligated with hemoclips and divided. The gallbladder removed from its fossa utilizing electrocautery, removed from the abdomen through the umbilical port. Hemostasis was assured. Trocars and retractors removed. The fascia closed with interrupted 0 Vicryl suture. The skin closed with interrupted 4-0 Rapide. Dermabond applied. The patient tolerated the procedure well, transferred to Recovery in good condition. Sponge and needle count verified correct x2. Job ID: [id number]
== END 2019-11-17 13:00 | disposition home or self-care (01) ==
LOC: SDC 06:47
PROVIDERS: ATTEND Surgery
PROC: 0FT44ZZ Resection of Gallbladder, Percutaneous Endoscopic Approach (ICD-10-PCS; principal; 2019-11-17)
DX: K80.10 Calculus of gallbladder with chronic cholecystitis without obstruction (principal); I10 Essential (primary) hypertension; E78.5 Hyperlipidemia, unspecified; M19.019 Primary osteoarthritis, unspecified shoulder; Z79.82 Long term (current) use of aspirin; Z79.899 Other long term (current) drug therapy; Z88.5 Allergy status to narcotic agent
CPT/HCPCS: 88304; J0694; J1100; J1885; J2001; J2405; J2550; J2704; J3010; S0020

== ENCOUNTER 2020-01-22 12:04 | Outpatient (CLI) | payer MEDICARE ==
--- NOTE | 2020-01-22 14:01 | ULT ---
RENAL ULTRASOUND: INDICATION: The order states cyst of kidney. There is frequency of urination. COMPARISON: Correlation is made to the CT abdomen of 10/17/2019 which revealed an obstructing calculus in the prox imal right ureter. This described a left parapelvic cysts. FINDINGS: The right kidney appears unremarkable on today's ultrasound exam. There is mild cortical thinning. The right kidney measures at 9.4 cm length. No hydronephrosis or cystic lesion is seen on the right. The left kidney is imaged and is 10.5 cm length. The ultrasound images show evidence of left hydrone phrosis. When correlation is made to the CT of 10/17/2019, this appearance of hydronephrosis may repr esent multiple parapelvic cysts which is not confirmed by ultrasound. The ultrasound images suggest diffuse hydronephrosis. The urinary bladder is mildly distended and unremarkable. A prevoid volume is recorded at 55 cc and a postvoid volume is recorded at 9 cc. IMPRESSION: The ultrasound imaging of the left kidney suggests moderate left hydronephrosis. However, prior CT s uggested numerous parapelvic cysts which may be giving this appearance on ultrasound of dilated colle cting structures. Further evaluation is recommended with an intravenous pyelogram study, either conv entional intravenous pyelogram or a CT urogram with delayed images to assess contrast excretion into the collecting structures. POS: RIDDHI
== END 2020-01-22 12:05 | disposition home or self-care (01) ==
LOC: BICULT 12:04
PROVIDERS: ATTEND Urology
DX: N20.0 Calculus of kidney (principal); N28.1 Cyst of kidney, acquired; R35.0 Frequency of micturition
CPT/HCPCS: 76770

== ENCOUNTER 2021-10-10 19:28 | Emergency (ER) | payer MEDICARE | END 2021-10-10 21:46 | disposition home or self-care (01) | LOC: ERS 19:28 | DX: M25.562 Pain in left knee (principal); M79.662 Pain in left lower leg; E78.2 Mixed hyperlipidemia; I10 Essential (primary) hypertension; Z79.899 Other long term (current) drug therapy ==

== ENCOUNTER 2021-11-21 12:51 | Outpatient (CLI) | payer MEDICARE | END 2021-11-21 12:52 | disposition home or self-care (01) | LOC: BICMRI 12:51 | PROVIDERS: ATTEND Orthopaedic Surgery | DX: S83.232A Complex tear of medial meniscus, current injury, left knee, initial encounter (principal); M23.92 Unspecified internal derangement of left knee ==